=== PATIENT | female | born 1990 | race Caucasian/White ===

== ENCOUNTER 2020-12-21 13:26 | Emergency (ER) | payer OTHER ==
[~2020-12-21] VITALS: Ht 160 cm; Wt 61.3 kg
[2020-12-21 14:14] LABS: BILIRUBIN,URINE NEGATIVE (NEG); CLARITY,URINE CLEAR; COLOR,URINE YELLOW; NITRITE,URINE NEGATIVE (NEG); PROTEIN,URINE NEGATIVE (NEG-TRACE); UROBILINOGEN,URINE 0.2 mg/dL (0.2 mg/dL)
[2020-12-21 14:24] LABS: BACTERIA,URINE FEW /HPF (0-FEW); RBC,URINE 0 /HPF (0-2); WBC,URINE OCC /HPF (0-4)
[2020-12-21 14:25] LABS: TRICHOMONAS,URINE PRESENT
--- NOTE | 2020-12-21 14:25 | ED.ADGEN ---
Past Medical History Past Medical History: No Pertinent History Past Surgical History: Cholecystectomy, Smoking Status: Never Smoker Alcohol Use: None General Adult EDM: Chief Complaint: ABDOMINAL PAIN HPI: HPI: Patient is a 30-year-old female who presents to the emergency room complaining of left upper quadrant and epigastric abdominal pain that started last night. She states that it comes in waves but is always there. She states it feels like a deep achy pain. She has had pain previously like this that was due to pancreatitis. She states that her prior episode of pancreatitis was due to alcoholism. She states that she quit drinking about a month ago. She denies any nausea, vomiting, diarrhea, constipation, fever, chills, sweats, shortness of breath, cough, URI symptoms. She has had her gallbladder out. She states she is able to eat without difficulty. Nothing seems to make the pain better or worse. Pain does not radiate. Review of Systems: Review of Systems: Complete ROS is negative unless otherwise documented in HPI Allergies: Allergies: Allergies Coded Allergies Type Severity Reaction Last Updated Verified No Known Drug Allergies 12/21/20 No Physical Exam: PE: General: Awake, alert, NAD. Well Nourished, well hydrated. Cooperative HEENT: Atraumatic, EOMI, PERRL, airway patent, moist oral mucosa Neck: Supple, trachea midline Respiratory: CTA bilaterally, normal effort, no wheezing/crackles CV: RRR, no murmur, cap refill <2 GI: Soft, nondistended, nontender, no masses MSK: No obvious deformities Skin: Warm, dry, intact Neuro: A&O x3, speech NL, sensory and motor grossly intact, no focal deficits Psych: Normal affect, normal mood, not suicidal or homicidal Current Patient Data: Labs: Laboratory Tests Test 12/21/20 13:45 12/21/20 14:08 12/21/20 15:05 Urine Collection Type Unknown Urine Color Yellow Urine Clarity Clear Urine pH 6.0 (<5.0-8.0) Urine Specific [place] 1.020 (1.000-1.030) Urine Protein Negative mg/dL (NEG-TRACE) Urine Glucose (UA) Negative mg/dL (NEG) Urine Ketones (Stick) Negative mg/dL (NEG) Urine Blood Negative (NEG) Urine Nitrite Negative (NEG) Urine Bilirubin Negative (NEG) Urine Urobilinogen Dipstick 0.2 mg/dL (0.2 mg/dL) Urine Leukocyte Esterase Negative (NEG) Urine RBC 0 /HPF (0-2) Urine WBC Occ /HPF (0-4) Urine Squamous Epithelial Cells Mod /LPF Urine Bacteria Few /HPF (0-FEW) Urine Mucus Slight /LPF Urine Trichomonas Present POC Urine HCG, Qualitative Hcg negative (Negative) White Blood Count 7.6 x10^3/uL (4.0-11.0) Red Blood Count 3.84 x10^6/uL (3.50-5.40) Hemoglobin 12.5 g/dL (12.0-15.5) Hematocrit 36.4 % (36.0-47.0) Mean Corpuscular Volume 95 fL (79-100) Mean Corpuscular Hemoglobin 32 pg (25-35) Mean Corpuscular Hemoglobin Concent 34 g/dL (31-37) Red Cell Distribution Width 13.3 % (11.5-14.5) Platelet Count 264 x10^3/uL (140-400) Neutrophils (%) (Auto) 64 % (31-73) Lymphocytes (%) (Auto) 28 % (24-48) Monocytes (%) (Auto) 6 % (0-9) Eosinophils (%) (Auto) 2 % (0-3) Basophils (%) (Auto) 1 % (0-3) Neutrophils # (Auto) 4.8 x10^3/uL (1.8-7.7) Lymphocytes # (Auto) 2.1 x10^3/uL (1.0-4.8) Monocytes # (Auto) 0.4 x10^3/uL (0.0-1.1) Eosinophils # (Auto) 0.1 x10^3/uL (0.0-0.7) Basophils # (Auto) 0.1 x10^3/uL (0.0-0.2) Sodium Level 143 mmol/L (136-145) Potassium Level 3.5 mmol/L (3.5-5.1) Chloride Level 107 mmol/L (98-107) Carbon Dioxide Level 27 mmol/L (21-32) Anion Gap 9 (6-14) Blood Urea Nitrogen 12 mg/dL (7-20) Creatinine 0.7 mg/dL (0.6-1.0) Estimated GFR (Cockcroft-Gault) 97.0 BUN/Creatinine Ratio 17 (6-20) Glucose Level 91 mg/dL (70-99) Calcium Level 8.6 mg/dL (8.5-10.1) Magnesium Level 2.1 mg/dL (1.8-2.4) Total Bilirubin 0.5 mg/dL (0.2-1.0) Aspartate Amino Transferase (AST) 12 U/L (15-37) L Alanine Aminotransferase (ALT) 12 U/L (14-59) L Alkaline Phosphatase 38 U/L (46-116) L Total Protein 6.3 g/dL (6.4-8.2) L Albumin 3.3 g/dL (3.4-5.0) L Albumin/Globulin Ratio 1.1 (1.0-1.7) Lipase 172 U/L (73-393) Laboratory Tests 12/21/20 15:05 Laboratory Tests 12/21/20 15:05 Vital Signs: Vital Signs Date Time Temp Pulse Resp B/P (MAP) Pulse Ox O2 Delivery O2 Flow Rate FiO2 12/21/20 16:07 76 103/63 (76) 97 Room Air 12/21/20 13:57 97.9 17 97.9 EKG: EKG: [] Heart Score: C/O Chest Pain: N/A Risk Factors: Risk Factors: DM, Current or recent (<one month) smoker, HTN, HLP, family history of CAD, obesity. Risk Scores: Score 0 - 3: 2.5% MACE over next 6 weeks - Discharge Home Score 4 - 6: 20.3% MACE over next 6 weeks - Admit for Clinical Observation Score 7 - 10: 72.7% MACE over next 6 weeks - Early Invasive Strategies Radiology/Procedures: Radiology/Procedures: [] Course & Med Decision Making: Course & Med Decision Making Pertinent Labs and Imaging studies reviewed. (See chart for details) Patient is a 30-year-old female presents to the emergency room complaining of lower abdominal pain. Patient does have history of pancreatitis. Abdominal labs were ordered. Patient has not had any associated symptoms. Lab work does not suggest pancreatitis. Liver enzymes are normal. Patient does have trichomonas in her urine. She will be treated empirically for STDs. Patient is well-appearing. Abdomen is soft and there is no signs of peritonitis. Patient's test results and vitals while in the ED were fully reviewed and discussed with the patient. Patient is stable and at this time does not need admission to the hospital. We have discussed strict return precautions and the importance of following up with their Primary Care Physician. Patient stated un derstanding and was given an opportunity to ask any questions. Patient is in agreement with plan. Dragon Disclaimer: Dragon Disclaimer: This electronic medical record was generated, in whole or in part, using a voice recognition dictation system. Departure Departure Impression: Primary Impression: Trichimoniasis Disposition: 01 HOME SELF CARE/HOMELESS Condition: STABLE Referrals: SCOTT SON MD (PCP) Patient Instructions: Trichomoniasis Scripts Doxycycline Hyclate (DOXYCYCLINE HYCLATE) 100 Mg Capsule 1 CAP PO BID, #14 CAP Prov: KASHIF CONWAY MD 12/21/20 Metronidazole (FLAGYL) 500 Mg Tablet 1 TAB PO BID, #14 TAB Prov: KASHIF CONWAY MD 12/21/20 KASHIF CONWAY MD Dec 21, 2020 14:25
[2020-12-21 15:18] LABS: BASO # 0.1 x10^3/uL (0.0-0.2); BASO % 1 % (0-3); EOS # 0.1 x10^3/uL (0.0-0.7); EOS % 2 % (0-3); HEMATOCRIT 36.4 % (36.0-47.0); HEMOGLOBIN 12.5 g/dL (12.0-15.5); LYMPH # 2.1 x10^3/uL (1.0-4.8); LYMPH % 28 % (24-48); MEAN CORPUSCULAR HEMOGLOBIN 32 pg (25-35); MEAN CORPUSCULAR HGB CONC 34 g/dL (31-37); MEAN CORPUSCULAR VOLUME 95 fL (79-100); MONO # 0.4 x10^3/uL (0.0-1.1); MONO % 6 % (0-9); NEUT # 4.8 x10^3/uL (1.8-7.7); NEUT % 64 % (31-73); PLATELET COUNT 264 x10^3/uL (140-400); RED BLOOD COUNT 3.84 x10^6/uL (3.50-5.40); RED CELL DISTRIBUTION WIDTH 13.3 % (11.5-14.5); WHITE BLOOD COUNT 7.6 x10^3/uL (4.0-11.0)
[2020-12-21 16:08] LABS: CALCIUM 8.6 mg/dL (8.5-10.1); CREATININE 0.7 mg/dL (0.6-1.0); POTASSIUM 3.5 mmol/L (3.5-5.1)
[2020-12-21 16:16] LABS: ALBUMIN 3.3 g/dL (3.4-5.0); ALBUMIN/GLOBULIN RATIO 1.1 (1.0-1.7); MAGNESIUM 2.1 mg/dL (1.8-2.4); TOTAL BILIRUBIN 0.5 mg/dL (0.2-1.0); TOTAL PROTEIN 6.3 g/dL (6.4-8.2)
[2020-12-21] MEDS ORDERED: METR500T PO (16:51)
[2020-12-21] MEDS ORDERED: DOXY100C2 PO (16:51)
[2020-12-21] MEDS ORDERED: cefTRIAXone IM 500 MG VIAL. IM ONE (17:00)
[2020-12-21 17:01] VITALS: BP 114/78
== END 2020-12-21 17:15 | disposition home or self-care (01) ==
LOC: ER 13:26
DX: B75 Trichinellosis (principal); R10.13 Epigastric pain; F10.10 Alcohol abuse, uncomplicated; Z90.49 Acquired absence of other specified parts of digestive tract; Z98.890 Other specified postprocedural states
CPT/HCPCS: 36415; 80053; 81001; 81025; 83690; 83735; 85025; 87491; 87591; 96372; 99285; J0696

== ENCOUNTER 2021-05-22 08:35 | Emergency (ER) | payer OTHER ==
[~2021-05-22] VITALS: Ht 160 cm; Wt 65.0 kg
[~2021-05-22 08:35] MED LIST: DOXY100C3 PO; METR500T PO
[2021-05-22] MEDS ORDERED: IV NORMAL SALINE 1000ML BAG 1,000 ML IV ONE (09:15)
[2021-05-22] MEDS ORDERED: KETOROLAC 15 MG/ML VIAL. IVP ONE (09:15)
[2021-05-22] MEDS ORDERED: FAMOTIDINE 20 MG/2 ML VIAL IVP ONE (09:15)
--- NOTE | 2021-05-22 09:31 | PHYS DOC ---
Past Medical History Past Medical History: Pancreatitis Additional Past Medical Histor: ETOH abuse Past Surgical History: Cholecystectomy Smoking Status: Never Smoker Alcohol Use: Occasionally Drug Use: None General Adult EDM: Chief Complaint: ABDOMINAL PAIN HPI: HPI: 30-year-old female presents with upper abdominal discomfort that started last night. Patient reports pain has continued today. Reports it is sharp in nature. Patient reports past medical history of pancreatitis. Patient reports she did drink alcohol 2 days ago. Denies any fever or chills. Denies nausea or vomiting. Denies trauma. Patient does have history of prior cholecystectomy. Review of Systems: Review of Systems: Constitutional: Denies fever or chills Eyes: Denies redness or eye pain HENT: Denies nasal congestion or sore throat Respiratory: Denies cough or shortness of breath Cardiovascular: Reports lower chest pain; denies palpitations GI: Reports upper abdominal pain; denies nausea or vomiting : Denies dysuria or hematuria Musculoskeletal: Denies back pain or joint pain Integument: Denies rash or skin lesions Neurologic: Denies headache, focal weakness or sensory changes Complete systems were reviewed and found to be within normal limits, except as documented in this note. Heart Score: C/O Chest Pain: Yes HEART Score for Chest Pain: HEART Score for Chest Pain Response (Comments) Value History Slighlty/Non-Suspicious 0 ECG Normal 0 Age < 45 0 Risk Factors No Risk Factors 0 Troponin < Normal Limit 0 Total 0 Risk Factors: Risk Factors: DM, Current or recent (<one month) smoker, HTN, HLP, family history of CAD, obesity. Risk Scores: Score 0 - 3: 2.5% MACE over next 6 weeks - Discharge Home Score 4 - 6: 20.3% MACE over next 6 weeks - Admit for Clinical Observation Score 7 - 10: 72.7% MACE over next 6 weeks - Early Invasive Strategies Current Medications: Current Medications Medications (Trade) Dose Ordered Sig/Keith Start Time Stop Time Status Last Admin Dose Admin Famotidine (Pepcid Vial) 20 mg 1X ONCE 05/22/21 09:15 05/22/21 09:16 DC Ketorolac Tromethamine (Toradol 15mg Vial) 15 mg 1X ONCE 05/22/21 09:15 05/22/21 09:16 DC Sodium Chloride 1,000 ml @ 1,000 mls/hr 1X ONCE 05/22/21 09:15 05/22/21 10:14 Allergies: Allergies: Allergies Coded Allergies Type Severity Reaction Last Updated Verified No Known Drug Allergies 12/21/20 No Physical Exam: PE: Constitutional: Well developed, well nourished, no acute distress, non-toxic appearance HENT: Normocephalic, atraumatic Eyes: Conjunctiva normal, no discharge Neck: Normal range of motion, supple Lungs & Thorax: No respiratory distress, equal chest rise and fall Abdomen: Soft, mild epigastric tenderness, no guarding or rebound tenderness Skin: Warm, dry, no erythema, no rash Back: No tenderness, no CVA tenderness Extremities: No tenderness, ROM intact, no edema Neurologic: Alert and oriented X 3, normal motor function, normal sensory function, no focal deficits noted Psychologic: Affect normal, judgment normal Current Patient Data: Labs: Laboratory Tests Test 05/22/21 09:10 POC Urine HCG, Qualitative Hcg negative (Negative) Vital Signs: Vital Signs Date Time Temp Pulse Resp B/P (MAP) Pulse Ox O2 Delivery O2 Flow Rate FiO2 05/22/21 08:55 98.0 76 16 139/96 98 Room Air 98.0 EKG: EKG: @0920 NSR at 86bpm, NO ST elevation, QRS 80ms, QT/QTc 380/458ms Radiology/Procedures: Radiology/Procedures: [] Course & Med Decision Making: Course & Med Decision Making Pertinent Lab studies reviewed. (See chart for details) Patient presents with upper abdominal pain. History of pancreatitis and recent alcohol consumption. Patient also with history of prior cholecystectomy. Pain/nausea addressed. IV fluid hydration provided. EKG stable. Labs obtained and posted to chart. Patient stable for discharge with outpatient follow-up with PCP/GI. GI referral provided. Discussed findings and plan with patient, who acknowledges understanding and agreement. Anabela Disclaimer: Anabela Disclaimer: This electronic medical record was generated, in whole or in part, using a voice recognition dictation system. Departure Departure Impression: Primary Impression: Abdominal pain Qualified Codes: R10.10 - Upper abdominal pain, unspecified Disposition: HOME / SELF CARE / HOMELESS Condition: STABLE Referrals: SCOTT SON MD (PCP) SANTIAGO TORRES MD Patient Instructions: Abdominal Pain, [id number] Scripts Hyoscyamine Sulfate (LEVSIN-SL) 0.125 Mg Tab.subl 0.125 MG SL Q4-6HRS PRN for PAIN, #14 TAB Prov: LADI ROBERTS DO 05/22/21 Famotidine (PEPCID) 20 Mg Tablet 20 MG PO BID, #20 TAB Prov: LADI ROBERTS DO 05/22/21 PERC Rule for PE PERC Rule for PE PERC Rule for PE Response (Comments) Value Age > 50: No 0 HR > 100: No 0 Sa02 on room air <95%: No 0 Unilateral leg swelling: No 0 Hemoptysis: No 0 Recent surgery or trauma: No 0 Prior PE or DVT: No 0 Hormone use: No 0 Total 0 LADI ROBERTS DO May 22, 2021 09:31
[2021-05-22 09:40] LABS: BILIRUBIN,URINE NEGATIVE (NEG); CLARITY,URINE CLOUDY; COLOR,URINE YELLOW; NITRITE,URINE NEGATIVE (NEG); PH,URINE 8.5 (<5.0-8.0); PROTEIN,URINE NEGATIVE (NEG-TRACE)
[2021-05-22 09:41] LABS: AMORPHOUS SEDIMENT,UR PRESENT /HPF; BACTERIA,URINE FEW /HPF (0-FEW); RBC,URINE 0 /HPF (0-2); WBC,URINE OCC /HPF (0-4)
[2021-05-22 09:42] LABS: BASO # 0.1 x10^3/uL (0.0-0.2); BASO % 1 % (0-3); EOS # 0.1 x10^3/uL (0.0-0.7); EOS % 2 % (0-3); HEMATOCRIT 38.2 % (36.0-47.0); LYMPH # 1.9 x10^3/uL (1.0-4.8); LYMPH % 27 % (24-48); MEAN CORPUSCULAR HEMOGLOBIN 32 pg (25-35); MEAN CORPUSCULAR HGB CONC 34 g/dL (31-37); MEAN CORPUSCULAR VOLUME 94 fL (79-100); MONO # 0.5 x10^3/uL (0.0-1.1); MONO % 7 % (0-9); NEUT # 4.4 x10^3/uL (1.8-7.7); NEUT % 63 % (31-73); PLATELET COUNT 223 x10^3/uL (140-400); RED BLOOD COUNT 4.07 x10^6/uL (3.50-5.40); RED CELL DISTRIBUTION WIDTH 13.8 % (11.5-14.5)
[2021-05-22 09:55] LABS: CALCIUM 8.7 mg/dL (8.5-10.1); CREATININE 0.7 mg/dL (0.6-1.0)
[2021-05-22 10:02] LABS: ALBUMIN 3.4 g/dL (3.4-5.0); TOTAL BILIRUBIN 0.8 mg/dL (0.2-1.0); TOTAL PROTEIN 6.7 g/dL (6.4-8.2)
[2021-05-22 10:18] LABS: CREATINE KINASE 112 U/L (26-192)
[2021-05-22 10:28] VITALS: BP 122/79
[2021-05-22] MEDS ORDERED: FAMO-63 PO (10:45)
[2021-05-22] MEDS ORDERED: HYOS0.1265 SL (10:45)
--- NOTE | 2021-05-22 14:06 | EKG ---
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
== END 2021-05-22 10:50 | disposition home or self-care (01) ==
LOC: ER 08:35
DX: R10.10 Upper abdominal pain, unspecified (principal); R07.89 Other chest pain; Z90.49 Acquired absence of other specified parts of digestive tract
CPT/HCPCS: 36415; 80053; 81001; 81025; 82553; 83605; 83690; 83735; 84484; 85025; 93005; 96361; 96374; 96375; 99284; J1885; J3490; J7030

== ENCOUNTER 2021-11-07 13:19 | Emergency (ER) | payer OTHER ==
[~2021-11-07] VITALS: Ht 160 cm; Wt 63.6 kg
[~2021-11-07 13:19] MED LIST changes: +FAMO-63 PO; +HYOS0.1265 SL
[2021-11-07] MEDS ORDERED: fentaNYL PF VIAL 100 MCG/2 ML VIAL IVP ONE (13:45)
[2021-11-07] MEDS ORDERED: ONDANSETRON PF 4 MG/2 ML VIAL. IVP ONE (13:45)
[2021-11-07] MEDS ORDERED: IV NORMAL SALINE 1000ML BAG 1,000 ML IV ONE (13:45)
--- NOTE | 2021-11-07 14:03 | RAD ---
EXAM: Abdomen sonogram. HISTORY: Pain. TECHNIQUE: Sonographic imaging of the abdomen was performed. COMPARISON: None. FINDINGS: The liver is normal in size. There is hepatic steatosis. No focal hepatic lesion is seen. T he gallbladder is surgically absent. The common bile duct is normal in caliber. The pancreas, right k idney and inferior vena cava are unremarkable. IMPRESSION: 1. Hepatic steatosis. 2. Cholecystectomy. Electronically signed by: Nneka Ledezma MD (11/07/2021 2:00 PM) [id number]
--- NOTE | 2021-11-07 14:07 | PHYS DOC ---
Past Medical History Past Medical History: Pancreatitis Additional Past Medical Histor: ETOH abuse Past Surgical History: Cholecystectomy, Smoking Status: Current Every Day Smoker Alcohol Use: Occasionally Drug Use: None General Adult EDM: Chief Complaint: NAUSEA/VOMITING/DIARRHEA HPI: HPI: Patient is a 31 year old female presenting to the ED today complaining of nausea, vomiting, diarrhea, symptoms began a week ago. Patient reports mild intermittent sharp bilateral upper abdominal pain. Denies any urgency, frequency, dysuria, denies any chance she is . Denies any exacerbating or relieving factors to her symptoms. Review of Systems: Review of Systems: Constitutional: Denies fever or chills. [] Eyes: Denies change in visual acuity. [] HENT: Denies nasal congestion or sore throat. [] Respiratory: Denies cough or shortness of breath. [] Cardiovascular: Denies chest pain or edema. [] GI: Reports abdominal pain, nausea vomiting and diarrhea, denies any hematemesis or melena : Denies dysuria. [] Musculoskeletal: Denies back pain or joint pain. [] Integument: Denies rash. [] Neurologic: Denies headache, focal weakness or sensory changes. [] Psychiatric: Denies depression or anxiety. [] Heart Score: C/O Chest Pain: N/A Risk Factors: Risk Factors: DM, Current or recent (<one month) smoker, HTN, HLP, family history of CAD, obesity. Risk Scores: Score 0 - 3: 2.5% MACE over next 6 weeks - Discharge Home Score 4 - 6: 20.3% MACE over next 6 weeks - Admit for Clinical Observation Score 7 - 10: 72.7% MACE over next 6 weeks - Early Invasive Strategies Current Medications: Current Medications Medications (Trade) Dose Ordered Sig/Keith Start Time Stop Time Status Last Admin Dose Admin Fentanyl Citrate (Fentanyl 2ml Vial) 50 mcg 1X ONCE 11/07/21 13:45 11/07/21 13:46 DC Ondansetron HCl (Zofran) 4 mg 1X ONCE 11/07/21 13:45 11/07/21 13:46 DC 11/07/21 13:57 4 MG Sodium Chloride 1,000 ml @ 1,000 mls/hr 1X ONCE 11/07/21 13:45 11/07/21 14:44 11/07/21 13:57 1,000 MLS/HR Allergies: Allergies: Allergies Coded Allergies Type Severity Reaction Last Updated Verified No Known Drug Allergies 11/07/21 No Physical Exam: PE: Constitutional: Well developed, well nourished, no acute distress, non-toxic appearance. [] HENT: Normocephalic, atraumatic, bilateral external ears normal, oropharynx moist, no oral exudates, nose normal. [] Eyes: PERRLA, EOMI, conjunctiva normal, no discharge. [] Neck: Normal range of motion, no tenderness, supple, no stridor. [] Cardiovascular:Heart rate regular rhythm, no murmur [] Lungs & Thorax: Bilateral breath sounds clear to auscultation [] Abdomen: Bowel sounds normal, soft, no tenderness, no masses, no pulsatile masses. [] Skin: Warm, dry, no erythema, no rash. [] Back: No tenderness, no CVA tenderness. [] Extremities: No tenderness, no cyanosis, no clubbing, ROM intact, no edema. [] Neurologic: Alert and oriented X 3, normal motor function, normal sensory function, no focal deficits noted. [] Psychologic: Affect normal, judgement normal, mood normal. [] Current Patient Data: Labs: Laboratory Tests Test 11/07/21 13:34 POC Urine HCG, Qualitative Hcg negative (Negative) Vital Signs: Vital Signs Date Time Temp Pulse Resp B/P (MAP) Pulse Ox O2 Delivery O2 Flow Rate FiO2 11/07/21 13:24 98.6 88 14 140/84 (102) 98 Room Air 98.6 EKG: EKG: [] Radiology/Procedures: Radiology/Procedures: []PROCEDURE: ABDOMEN LTD EXAM: Abdomen sonogram. HISTORY: Pain. TECHNIQUE: Sonographic imaging of the abdomen was performed. COMPARISON: None. FINDINGS: The liver is normal in size. There is hepatic steatosis. No focal hepatic lesion is seen. The gallbladder is surgically absent. The common bile duct is normal in caliber. The pancreas, right kidney and inferior vena cava are unremarkable. IMPRESSION: 1. Hepatic steatosis. 2. Cholecystectomy. Electronically signed by: Nneka Apple MD (11/07/2021 2:00 PM) [id number] DICTATED and SIGNED BY: NNEKA APPLE MD DATE: 11/07/21 [id number] 0 Course & Med Decision Making: Course & Med Decision Making Pertinent Labs and Imaging studies reviewed. (See chart for details) This is a 31-year-old female patient presented to the ED today with complaints of nausea, vomiting, diarrhea and some abdominal pain, symptoms intermittently for a week Negative urine hCG, UA negative for infection, noted for dehydration. CBC, CMP, lipase with no acute findings, abdominal ultrasound is negative, patient was given IV fluids. Discharge to home. Follow-up with PCP and GI Anabela Disclaimer: Anabela Disclaimer: This electronic medical record was generated, in whole or in part, using a voice recognition dictation system. Departure Departure Impression: Primary Impression: Dehydration Additional Impressions: Nausea and vomiting Qualified Codes: R11.2 - Nausea with vomiting, unspecified Diarrhea Qualified Codes: R19.7 - Diarrhea, unspecified Disposition: 01 HOME / SELF CARE / HOMELESS Condition: STABLE Referrals: SCOTT SON MD (PCP) follow up in one week SANTIAGO TORRES MD follow up in one week Patient Instructions: Dehydration, Adult, [id number], Nausea and Vomiting, [id number] Additional Instructions: You were evaluated in the emergency room, your work-up showed you were dehydrated, you received a liter of IV fluids in the ED. Push fluids at home. Follow-up with your doctor in 1 week or the provided GI doctor. Take Zofran as needed for nausea or vomiting Scripts Ondansetron (ONDANSETRON ODT) 4 Mg Tab.rapdis 1 TAB PO PRN Q6-8HRS, #16 TAB Prov: SHAZIA DUBOSE APRN 11/07/21 SHAZIA DUBOSE APRN Nov 07, 2021 14:07
[2021-11-07 14:14] LABS: BASO % 0 % (0-3); EOS % 0 % (0-3); HEMATOCRIT 47.3 % (36.0-47.0); HEMOGLOBIN 15.4 g/dL (12.0-15.5); LYMPH # 1.1 x10^3/uL (1.0-4.8); LYMPH % 11 % (24-48); MEAN CORPUSCULAR HEMOGLOBIN 31 pg (25-35); MEAN CORPUSCULAR HGB CONC 33 g/dL (31-37); MEAN CORPUSCULAR VOLUME 96 fL (79-100); MONO # 0.5 x10^3/uL (0.0-1.1); MONO % 5 % (0-9); NEUT % 83 % (31-73); PLATELET COUNT 261 x10^3/uL (140-400); RED BLOOD COUNT 4.94 x10^6/uL (3.50-5.40); RED CELL DISTRIBUTION WIDTH 21.3 % (11.5-14.5); WHITE BLOOD COUNT 9.6 x10^3/uL (4.0-11.0)
[2021-11-07 14:15] LABS: BILIRUBIN,URINE SMALL (NEG); CLARITY,URINE CLEAR; COLOR,URINE AMBER; NITRITE,URINE NEGATIVE (NEG); PROTEIN,URINE 30 mg/dL (NEG-TRACE)
[2021-11-07 14:21] LABS: BARBITURATES NEG (NEG); BENZODIAZEPINES NEG (NEG); CANNABINOIDS POS (NEG); COCAINE NEG (NEG); METHADONE NEG (NEG); OPIATES NEG (NEG); PHENCYCLIDINE NEG (NEG)
[2021-11-07 14:22] LABS: CALCIUM 8.5 mg/dL (8.5-10.1); CREATININE 0.8 mg/dL (0.6-1.0); GFR 82.6; POTASSIUM 3.4 mmol/L (3.5-5.1)
[2021-11-07 14:23] LABS: AMPHETAMINE/METHAMPHETAMINE NEG (NEG)
[2021-11-07 14:27] LABS: BACTERIA,URINE MODERATE /HPF (0-FEW)
[2021-11-07 14:28] LABS: ALBUMIN 3.6 g/dL (3.4-5.0); ALBUMIN/GLOBULIN RATIO 0.9 (1.0-1.7); TOTAL PROTEIN 7.5 g/dL (6.4-8.2)
[2021-11-07 14:45] LABS: INFLUENZA A PATIENT NEGATIVE (NEGATIVE); INFLUENZA B PATIENT NEGATIVE (NEGATIVE)
[2021-11-07] MEDS ORDERED: ONDA4TAB12 PO (15:06)
[2021-11-07 15:26] LABS: ANISOCYTOSIS MOD; PLT ESTIMATE ADEQUATE (ADEQUATE)
[2021-11-07 15:29] VITALS: BP 102/66
--- NOTE | 2021-11-09 10:38 | NUR ---
IP: Attempted to contact pt concerning covid results. No answer, left a voicemail to return my call.
--- NOTE | 2021-11-09 17:00 | NUR ---
IP: Pt returned my call. Informed her of negative covid test. Pt verbalized understanding.
== END 2021-11-07 16:04 | disposition home or self-care (01) ==
LOC: ER 13:19
DX: E86.0 Dehydration (principal); R11.2 Nausea with vomiting, unspecified; Z20.822 Contact with and (suspected) exposure to COVID-19; R19.7 Diarrhea, unspecified; R10.11 Right upper quadrant pain; R10.12 Left upper quadrant pain; F17.200 Nicotine dependence, unspecified, uncomplicated; Z90.49 Acquired absence of other specified parts of digestive tract
CPT/HCPCS: 76705; 80053; 80307; 81001; 81025; 83690; 85025; 87086; 87428; 96361; 96374; 99285; C9803; G0480; J2405; J7030; U0003